=== PATIENT | female | born 1975 | race Caucasian/White ===

== ENCOUNTER → 2025-05-31 10:05 | Outpatient (BNVA) | payer OTHER, SELFPAY | PROVIDERS: PCP Nurse Practitioner Family; Visit Provider Podiatrist Foot & Ankle Surgery | DX: M79.671 Pain in right foot (principal); M79.672 Pain in left foot; M25.572 Pain in left ankle and joints of left foot; M72.2 Plantar fascial fibromatosis; Q66.71 Congenital pes cavus, right foot; Q66.72 Congenital pes cavus, left foot | CPT/HCPCS: 73600; 73630 ==

== ENCOUNTER 2025-08-04 12:47 | Emergency (ER) | payer OTHER, SELFPAY ==
--- NOTE | 2025-08-04 12:48 | XR_ITS ---
WS: [id number] Left knee, 3 views, 08/04/2025 Clinical Data: pain/injury Comparison: None. Findings: No fractures or dislocations are seen. There is medial joint compartment narrowing with spurring of the medial and lateral tibial plateaus and femoral condyles. The left patella shows spurring and irregularity. The soft tissues are unremarkable. XR/XR knee LT 3V* [id number] Impression: 1. Osteoarthritis of the left knee. 2. Negative for fracture or dislocation.
[2025-08-04 12:49] VITALS: BP 157/88; PULSE 75; RESP 18; TEMP 36.8; O2SAT 97
--- NOTE | 2025-08-04 12:59 | W.ED.LOWEXIN ---
HPI - Extremity Injury (Lower) General: Chief Complaint: Extremity Injury, Lower Stated Complaint: fall / lt knee inj Time Seen by Provider: 08/04/25 12:58 Source: patient Mode of arrival: wheelchair Limitations: no limitations History of Present Illness: Patient is a 49-year-old female presents to ED today with a complaint of a left knee injury x today. Patient states she was walking down a flight of stairs when she twisted the left knee. She states she has injured this knee several times before and it often seems to buckle . She states most of her pain is to the medial aspect. She does feel like it is swollen. No other injuries or complaints at this time. complaint: knee injury Onset (ago): hour(s) Injury: Left: knee Place: home Severity: moderate Relieving factors: immobilization Exacerbating factors: weight bearing, movement and palpation Associated symptoms: Reports no associated symptoms Other symptoms: none Related Data Home Medications ?Medication ?Instructions ?Recorded ?Confirmed diclofenac sodium 1 % topical gel topical 05/31/25 05/31/25 meloxicam 7.5 mg tablet 7.5 mg PO DAILY 05/31/25 05/31/25 methocarbamol 750 mg tablet mg PO 05/31/25 05/31/25 oxycodone-acetaminophen 10 mg-325 1 tab PO Q6H 05/31/25 05/31/25 mg tablet trazodone 100 mg tablet 100 mg PO DAILY 05/31/25 05/31/25 triamterene 37.5 1 tab PO DAILY 05/31/25 05/31/25 mg-hydrochlorothiazide 25 mg tablet Previous Rx's ?Medication ?Instructions ?Recorded prednisone 10 mg tablet 10 mg PO DAILY 12 days #42 tabs 06/12/25 Allergies Allergy/AdvReac Type Severity Reaction Status Date / Time Penicillins Allergy Severe ALGY-Anaphy Verified 05/31/25 10:43 laxis iodine Allergy Intermediate ALGY-Bliste Verified 05/31/25 10:43 r Latex, Natural Rubber Allergy Intermediate ALGY-Bliste Verified 05/31/25 10:43 r Review of Systems Const: Denies: fever(s) Card: Denies: chest pain Resp: Denies: dyspnea Musc: Reports: joint pain (L knee) and joint swelling (feels like L knee is swollen); Denies: neck pain, back pain, extremity pain or extremity swelling Neuro: Reports: difficulty walking (secondary to L knee pain); Denies: numbness in extremities, weakness in extremities or sensory changes PFSH ED PFSH: Social History Smoking and tobacco/nicotine status: former use of tobacco/nicotine (quit in 2023) Second hand smoke exposure: No Alcohol intake: unknown Substance/Drug Use: unknown Physical Exam Const: COMMON NORMALS: no acute distress, average body habitus, no limitations, healthy appearing, alert and well nourished Neck/C-Spine: COMMON NORMALS: full ROM CERVICAL SPINE: No Cervical spine tenderness Back/Pelvis: COMMON NORMALS: thoracic and lumbar spine normal to inspection and no thoracic nor lumbar tenderness Extremity: COMMON NORMALS: no joint enlargement, no clubbing, cyanosis or edema, no calf tenderness and no pedal edema GENERAL: Yes normal exam except as noted LEFT LOWER EXTREMITY: Yes knee joint (medial L knee pain; no obvious edema or effusion noted) Left knee: Yes inspection (normal gross inspection of L knee) and Yes neurovascular exam (normal) Neuro: COMMON NORMALS: moves all extremities, no focal motor deficits and no sensory deficits noted SENSORIUM/ORIENTATION: Yes alert Course Vital Signs: Vital signs: Vital Signs Temperature 98.2 F 08/04/25 12:49 Pulse Rate 75 08/04/25 12:49 Respiratory Rate 18 08/04/25 12:49 Blood Pressure 157/88 08/04/25 12:49 Pulse Oximetry 97 08/04/25 12:49 Oxygen Delivery Me thod Room Air 08/04/25 12:49 MDM - Extremity Injury (Lower) Medical Decision Making X-ray of the knee negative for acute injury. Chronic osteoarthritis. Patient has an Jason wrap and crutches. Discussed RICE therapy. She can follow-up with primary care in 1 to 2 weeks if symptoms are not improving. Lab Data Radiology Impressions Knee X-Ray 08/04/25 12:48 Impression: 1. Osteoarthritis of the left knee. 2. Negative for fracture or dislocation. All radiology interpretation(s) finalized by discharge Discharge Plan Discharge Patient Disposition: Home Clinical Impression: Injury of knee, left Qualifiers: Encounter type: initial encounter Qualified Code(s): S89.92XA - Unspecified injury of left lower leg, initial encounter Condition: Stable Prescriptions: No Action meloxicam 7.5 mg tablet 7.5 mg PO DAILY methocarbamol 750 mg tablet PO oxycodone-acetaminophen 10-325 mg tablet 1 tab PO Q6H trazodone 100 mg tablet 100 mg PO DAILY triamterene-hydrochlorothiazid 37.5-25 mg tablet 1 tab PO DAILY diclofenac sodium 1 % gel topical prednisone 10 mg tablet 10 mg PO DAILY 12 Days Qty: 42 0RF Rx Instructions: 12 day taper Instructions on how to take was given to patient in clinic. Discharge Orders: Discharge ED (Routine); Ordered 08/04/25 Ordered By: Christa Villafana Referrals: Luna Holloway [facility] [Primary Care Provider, Family Practice] Patient Instructions: Patient Portal & Tiffany Instructions Activity Restrictions/Additional Instructions: As we discussed, please follow-up with your primary care provider in 1 to 2 weeks if symptoms are not improving. We spoke about crutches, ice, elevation, [id number] anti-inflammatories to help with discomfort. Stand Alone Forms: Work/School Release Print Language: Frisian Coding Level of Care Code ED [employer] for Oniel Robles
== END 2025-08-04 14:47 | disposition home or self-care (01) ==
PROVIDERS: Emergency Provider Physician Assistant; PCP Nurse Practitioner Family
DX: S89.92XA Unspecified injury of left lower leg, initial encounter (principal); Z87.891 Personal history of nicotine dependence; X58.XXXA Exposure to other specified factors, initial encounter
CPT/HCPCS: 73562; 99283